=== PATIENT | female | born 2000 | race American Indian/Alaskan Native ===

== ENCOUNTER 2020-03-27 12:45 | Emergency (ER) | payer MEDICAID ==
--- NOTE | 2020-03-27 15:53 | Emergency Department Report ---
ED HPI - General Chief complaint: Abdominal Pain Stated complaint: 18 WEEKS PREG/PAIN/TIGHTNESS IN STOMACH Time Seen by Provider: 03/27/20 14:56 Source: patient Mode of arrival: Ambulatory Limitations: No Limitations - History of Present Illness Initial comments: This is a 20-year-old -0-0-1 female presents the ED at approximately 18 weeks gestation complaining of lower pelvic abdominal pain that began today. Patient states that pain feels like a sharp campy type like pain. She denies nausea vomiting diarrhea, fever, vaginal bleeding, vaginal discharge or any other symptoms Patient states that she received care regularly, patient states she was seen by [facility] yesterday and everything was normal. She denies urinary symptoms. MD Complaint: abdominal pain - Related Data Allergies Allergy/AdvReac Type Severity Reaction Status Date / Time No Known Allergies Allergy Unverified 03/27/20 13:01 ED Review of Systems ROS: Stated complaint: 18 WEEKS PREG/PAIN/TIGHTNESS IN STOMACH Other details as noted in HPI Comment: All other systems reviewed and negative ED Past Medical Hx - Past Medical History Previous Medical History?: No Hx Hypertension: No Hx Diabetes: No Hx Deep Vein Thrombosis: No Hx Renal Disease: No Hx Sickle Cell Disease: No Hx Seizures: No Hx Asthma: No - Surgical History Past Surgical History?: No - Social History Smoking Status: Never Smoker Substance Use Type: None ED Physical Exam - General Limitations: No Limitations General appearance: alert, in no apparent distress - Head Head exam: Present: atraumatic, normocephalic - Eye Eye exam: Present: normal appearance - ENT ENT exam: Present: mucous membranes moist - Neck Neck exam: Present: normal inspection - Respiratory Respiratory exam: Present: normal lung sounds bilaterally. Absent: respiratory distress - Cardiovascular Cardiovascular Exam: Present: regular rate, normal rhythm. Absent: systolic murmur, diastolic murmur, rubs, gallop - GI/Abdominal GI/Abdominal exam: Present: soft, normal bowel sounds - Extremities Exam Extremities exam: Present: normal inspection - Back Exam Back exam: Present: normal inspection - Neurological Exam Neurological exam: Present: alert, oriented X3. Absent: normal gait - Psychiatric Psychiatric exam: Present: normal affect, normal mood - Skin Skin exam: Present: warm, dry, intact, normal color. Absent: rash ED Course Vital Signs 03/27/20 03/27/20 16:12 17:57 Temperature 99.0 F Pulse Rate 88 84 Respiratory 20 16 Rate Blood Pressure 129/61 124/66 [Left] O2 Sat by Pulse 98 99 Oximetry ED Medical Decision Making - Radiology Data Radiology results: report reviewed, image reviewed Ultrasound Report Signed Patient: JONATHAN HUFF MR# : [id number] : 2000 Acct:[id number] Age/Sex: 20 / F ADM Date: 03/27/20 Loc: ED Attending Dr: Ordering Physician: CICI ROBERTS Date of Service: 03/27/20 Procedure(s): US OB >= 14 weeks Fetus Accession Number(s): [id number] cc: CICI ROBERTS ULTRASOUND OBSTETRIC INDICATION: Abdominal and pelvic pain. Clinical Gestational Age (GA): 18 weeks, 5 days TECHNIQUE: Transabdominal. COMPARISON: None available. FINDINGS: There is a single intrauterine . Biparietal Diameter = 4.2 cm = 18 weeks, 4 day(s). Head Circumference = 15.9 cm = 18 weeks, 5 day(s). Abdominal Circumference = 13.4 cm = 18 weeks, 6 day(s). Femur Length = 3 cm = 19 weeks, 1 day(s). Average Ultrasound Age (AUA) = 18 weeks, 6 day(s). Heart Rate: 148 beats per minute. Estimated Weight in grams (if calculated): 266 Estimated Weight Growth Percentile (if calculated): Not measured Position: transverse. Cervix: closed. Length in cm (if measured): 6.8 Placenta: posterior and marginal. Amniotic Fluid Volume: normal Amniotic Fluid Index (DAVE) in cm (if calculated): Not measured. Maternal Adnexa: No significant abnormality. IMPRESSION: 1. Single, living intrauterine with estimated sonographic age of 18 weeks, 6 day(s). 2. Low-lying placenta. No additional significant sonographic abnormality. Signer Name: Chris Correa MD Signed: 03/27/2020 5:27 PM Workstation Name: [id number] Transcribed By: LYLE Dictated By: Chris Correa MD Electronically Authenticated By: Chris Correa MD Signed Date/Time: 03/27/20 1901 - Medical Decision Making This 20-year-old female presents the ED at 18 weeks gestation with abdominal pelvic pain. Patient is followed by [facility] periodically. OB ultrasound performed. See report above Discussed findings with the patient. Discussed with patient to follow-up with her [facility]. She noted that she had urine test and blood work completed which were normal at her visit. Discussed Tylenol only as needed for pain. Patient is in no acute distress, vital signs are normal Critical care attestation.: If time is entered above; I have spent that time in minutes in the direct care of this critically ill patient, excluding procedure time. ED Disposition Clinical Impression: Abdominal pain during in second trimester Disposition: DC-01 TO HOME OR SELFCARE Is pt being admited?: No Does the pt Need Aspirin: No Condition: Stable Instructions: Abdominal Pain (ED) Additional Instructions: Make sure to follow up with the [facility] as discussed. Avoid intercourse until follow-up with [facility] If you have any worsening symptoms or develop new symptoms please return to ED immediately. Referrals: JANI BRAVO MD [Other] - 3-5 Days Forms: Accompanied Note, Work/School Release Form(ED)
--- NOTE | 2020-03-27 17:32 | Ultrasound Report ---
ULTRASOUND OBSTETRIC INDICATION: Abdominal and pelvic pain. Clinical Gestational Age (GA): 18 weeks, 5 days TECHNIQUE: Transabdominal. COMPARISON: None available. FINDINGS: There is a single intrauterine . Biparietal Diameter = 4.2 cm = 18 weeks, 4 day(s). Head Circumference = 15.9 cm = 18 weeks, 5 day(s). Abdominal Circumference = 13.4 cm = 18 weeks, 6 day(s). Femur Length = 3 cm = 19 weeks, 1 day(s). Average Ultrasound Age (AUA) = 18 weeks, 6 day(s). Heart Rate: 148 beats per minute. Estimated Weight in grams (if calculated): 266 Estimated Weight Growth Percentile (if calculated): Not measured Position: transverse. Cervix: closed. Length in cm (if measured): 6.8 Placenta: posterior and marginal. Amniotic Fluid Volume: normal Amniotic Fluid Index (DAVE) in cm (if calculated): Not measured. Maternal Adnexa: No significant abnormality. IMPRESSION: 1. Single, living intrauterine with estimated sonographic age of 18 weeks, 6 day(s). 2. Low-lying placenta. No additional significant sonographic abnormality. Signer Name: Chris Correa MD Signed: 03/27/2020 5:27 PM Workstation Name: [id number]
[2020-03-27 17:58] VITALS: BP 124/66
== END 2020-03-27 17:57 | disposition home or self-care (01) ==
LOC: ED 12:45
DX: O26.892 Other specified pregnancy related conditions, second trimester (principal); R10.30 Lower abdominal pain, unspecified; Z3A.18 18 weeks gestation of pregnancy
CPT/HCPCS: 76805; 99283